=== PATIENT | male | born 1945 | race Two or more races ===

== ENCOUNTER 2020-03-05 08:15 | Inpatient (IN) | payer OTHER ==
[~2020-03-05] VITALS: Ht 170.2 cm; Wt 73.0 kg
== END 2020-03-15 14:49 | disposition home or self-care (01) | DRG 333 ==
LOC: SURH 03-07 10:46 → SURG 03-07 10:46 → O/R 03-08 08:15 → SURH 03-10 13:29
PROVIDERS: ADMIT Surgery; ATTEND Surgery
PROC: 30233N1 Transfusion of Nonautologous Red Blood Cells into Peripheral Vein, Percutaneous Approach (ICD-10-PCS; 2020-03-07)
PROC: 0DTP4ZZ Resection of Rectum, Percutaneous Endoscopic Approach (ICD-10-PCS; principal; 2020-03-12)
PROC: 07BC4ZZ Excision of Pelvis Lymphatic, Percutaneous Endoscopic Approach (ICD-10-PCS; 2020-03-12)
DX: C19 Malignant neoplasm of rectosigmoid junction (principal); E87.1 Hypo-osmolality and hyponatremia; D64.9 Anemia, unspecified; D50.0 Iron deficiency anemia secondary to blood loss (chronic); I44.0 Atrioventricular block, first degree; R56.9 Unspecified convulsions; D36.0 Benign neoplasm of lymph nodes; K57.30 Diverticulosis of large intestine without perforation or abscess without bleeding